=== PATIENT | male | born 1935 | race Caucasian/White ===

== ENCOUNTER 2017-02-19 22:24 | Emergency (ER) | payer MEDICARE ==
[~2017-02-19] VITALS: Ht 175.3 cm; Wt 77.1 kg
[~2017-02-19 22:24] MED LIST: AMLODIPINE10 MG PO; ASPIRIN81 MG PO; ATENOLOL50 M1 PO; ATENOLOL50 MG PO; CIPROFLOXACIN500 MG PO; CYCLOBENZ5 MG PO; IMDUR 30MG. TAB30 MG PO; ISOSORBIDE MONO30 MG PO; LIPITOR20 MG PO; LISINOPRIL 10MG10 MG PO; LISINOPRIL40 MG PO; LOSARTAN POTASS50 MG PO; MIRALAX(PO17 GM/1 PA PO; MOTRIN 400MG.400 MG PO; PLAVIX 75MG TAB75 MG PO; TAMSULOSIN HYD0.4 MG PO; TORSEMIDE10 MG PO; VITAMIN B1250 MCG PO; ZYRTEC ALLERGY10 MG PO
[2017-02-19 23:05] LABS: HEMOGLOBIN 12.8 g/dL (14.1-18.0); LYMPH # 1.4 K/mm3 (0.7-4.5); LYMPH % 26.6 % (10-50)
--- NOTE | 2017-02-20 00:41 | Emergency Room Report ---
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 N Clinical Suspician of Infection? N Mental Status: 1 - Regular (Normal Baseline) Sepsis Risk:Low Sepsis Risk Have you (or family members/close friends) recently traveled outside the [place]? N If Yes, where/when: Have you had exposure to infectious disease within the past month? N TB? Other? Specify: Source patient, RN notes reviewed, family, old records Exam Limitations no limitations Comment pt with episode of chest pain and tonight with no sob or diaphoresis - has hx of cad - no pain at this time Cardiac Chest Pain Chest pain indicative of cardiac Yes Timing/Duration 1-3 hours, gone now Severity/Quality moderate, pressure Location central Chest Pain Radiation arm(s) Activities at Onset light activity Nitro Today/Relief no nitro taken today Aspirin Treatment Today 325 mg x 1, provided at home Beta rebecca treatment today no beta rebecca taken Cardiac risk factors + cardiovascular disease, + family history Prior Workup/Intervention cardiac cath Timing/Duration this evening Severity moderate ALLERGIES Coded Allergies: No Known Drug Allergies (NKDA) (09/11/12) Home Medications Reported Medications LISINOPRIL (Lisinopril) 10 MG PO DAILY Atenolol 50 MG PO BID CLOPIDOGREL BISULFATE (PLAVIX) 75 MG PO DAILY Aspirin 81 MG PO DAILY Atorvastatin Calcium (Lipitor 20MG) 40 MG PO DAILY Amlodipine Besylate (Amlodipine) 10 MG PO DAILY Isosorbide Mononitrate (Isosorbide Mononitrate ER) 30 MG PO DAILY TAMSULOSIN HCL (Tamsulosin 0.4MG) 0.4 MG PO QHS ISOSORBIDE MONONITRATE (IMDUR 30MG) 30 MG PO BID Cyclobenzaprine Hcl (Cyclobenzaprine) 5 MG PO BID Cetirizine Hcl (Zyrtec) 10 MG PO CYANOCOBALAMIN (VITAMIN B-12) (Vitamin B-12) 50 MCG PO POLYETHYLENE GLYCOL (Miralax) 17 GM PO DAILY Ibuprofen (MOTRIN 400MG) 400 MG PO Q8HP PRN . History Medical History General Angina: No [place]: Yes Hypertension? Yes Hyperlipidemia? Yes CHF? No COPD? No Asthma? No Hernia? No CVA? Yes Seizures? No UTI? No Stones? Yes GB Disease: No Hepatitis? No Cataracts? No Glaucoma? No MRSA? No TB? No Cancer? No Immunization Hx DT/Tetanus > 10 Years Ago Pneumonia Refuses Surgical Hx Previous Surgery?Y LEFT LEG JAW SURGERY Family History Family Hx Diabetes Yes Hypertension Yes Hyperlipidemia Yes Social History Smoking Hx Smoker: Never Smoker Tobacco: No Type Cigarettes Alcohol Alcohol: No Drugs none Review of Systems All Other Systems Reviewed and Negative Constitutional denies fever Eyes denies drainage ENT denies: ear discharge, epistaxis, throat pain. Respiratory denies cough, denies shortness of breath, denies wheezing Cardiovascular see HPI, chest pain, denies palpitations, denies syncope Gastrointestinal denies abdominal pain, denies diarrhea, denies vomiting Genitourinary denies: dysuria, frequency, hesitancy, hematuria. Musculoskeletal denies back pain, denies joint pain, denies joint swelling, denies neck pain Skin denies rash Psychiatric/Neurological denies headache, denies seizure Physical Exam Vital Signs Vital Signs Date Time Temp Pulse Resp B/P Pulse O2 O2 Flow FiO2 Ox Delivery Rate 02/20 0025 58 20 172/75 96 02/19 2345 63 22 171/79 96 02/19 2304 62 16 186/46 96 02/19 2224 97.9 80 16 197/98 97 - WBC >12,000 or <4,000 or 10% bands? 2 or more SIRS Criteria Met? B/P:172/75 MAP:131 Creatinine >2.0? UA output<0.5ml/kg/hr for 2 hrs? Platelet count >100,000? Lactate >2.0mmol/1? INR >1.2 or PTT > than 60 sec? Evidence of Organ Dysfunction? Provider documented clinical suspician of infection? N Sepsis Criteria Count: 0 Sepsis Risk: Low Sepsis Risk General Appearance no apparent distress Eye Exam - bilateral eye PERRL, bilateral eye EOMI Ear, Nose, Throat normal ENT inspection Neck supple Respiratory Status No: respiratory distress. Lung Sounds bilateral: lungs clear. 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 No Results/Orders Laboratory Tests 02/20/17 0050: Troponin I 0.06 02/20/17 0050: Lipase 207 02/19/170: Sodium 144, Potassium 3.9, Chloride 109 H, Carbon Dioxide 26, BUN 13, Creatinine 1.1, Estimated Creat Clear 55, Estimated GFR (MDRD) 64, Glucose 114 H, Calcium 8.7, Total Bilirubin 0.2, AST 20, ALT 21, Alkaline Phosphatase 107, Creatine Kinase 122, CK-MB (CK-2) Rel Index 1.6, CK and CKMB Interp 1.9, Troponin I 0.05, Total Protein 6.5, Albumin 3.7, Globulin 2.8, Albumin/Globulin Ratio 1.3, WBC 5.4, RBC 4.38 L, Hgb 12.8 L, Hct 40.0 L, MCV 91.3, RDW 13.2, Plt Count 182, MPV 7.9, Gran % 53.3, Gran # 2.9, Lymphocytes % 26.6, Monocytes % 8.3, Eosinophils % 10.6, Basophils % 1.2, Lymphocytes # 1.4, Monocytes # 0.5, Eosinophils # 0.6 H, Basophils # 0.1, PUBS MCHC 32.0, MCH 29.2 Current Medication Orders Sig/Jeremias Start time Last Medication Dose Route Stop Time Status Admin Sodium Chloride 10 ML PRN PRN 02/19 2245 AC IV 02/20 2233 Orders Procedure Date/time Status ELECTROCARDIOGRAM REQUEST 02/20 41 Active TROPONIN I 02/20 41 Complete LIPASE 02/20 41 Complete ELECTROCARDIOGRAM REQUEST 02/19 2233 Active CHEST-PORTABLE 02/19 2233 Active IV SALINE LOCK 02/19 2233 Active CBC WITH AUTO DIFF 02/19 2233 Complete CARDIAC ENZYMES 02/19 2233 Complete CHEM 12 PROFILE 09/09 2233 Complete 12 LEAD EKG-RIP (INITIAL) 02/19 UNK Active CM/EKG CM/EKG 1 Monitor Rhythm Normal Sinus Rhythm EKG non-spec. ST/Twave chgs CM/EKG 2 Monitor Rhythm Normal Sinus Rhythm EKG non-spec. ST/Twave chgs XRAY/CT/US XRAY/CT/US XRAY chest XR interpretation by reviewed by me Xray Results normal/NAD Departure Departure Time of Disposition 0157 Disposition DC Home or Self Care(routine) Clinical Impression Primary Impression: Chest pain Qualifiers: Chest pain type: precordial pain Qualified Code: R07.2 - Precordial pain Condition STABLE Referrals TAMY WOODSON (Family) Patient Instructions DI for Chest Pain Additional Instructions recheck if any problems and call silvestre ku tuesday Discharge Counseling Counseled pt/family regarding diagnosis, test results, follow up needs ED Critical Care Critical Care No at [id number]
[2017-02-20 02:04] VITALS: BP 159/69
--- NOTE | 2017-02-20 08:01 | RADIOLOGY REPORT PS360 ---
CHEST-PORTABLE HISTORY: CHEST PAIN ORDERING PHYSICIAN: Marielena Rueda MD PATIENT AGE: 82 years COMPARISON: 02/03/2014 FINDINGS: The cardiomediastinal silhouette and pulmonary vascularity are within normal limits. Chronic changes are present in the lung bases. No lobar consolidation or collapse.. No acute bony abnormalities. IMPRESSION: No change with no acute finding
== END 2017-02-20 02:04 | disposition home or self-care (01) ==
LOC: ER 22:24
PROVIDERS: Emergency Medicine
DX: R07.2 Precordial pain (principal); I25.10 Atherosclerotic heart disease of native coronary artery without angina pectoris; Z82.49 Family history of ischemic heart disease and other diseases of the circulatory system; Z98.61 Coronary angioplasty status; Z79.02 Long term (current) use of antithrombotics/antiplatelets; Z79.82 Long term (current) use of aspirin; Z79.899 Other long term (current) drug therapy

== ENCOUNTER → 2017-03-10 | Outpatient (CLI) | payer MEDICARE ==
--- NOTE | 2017-03-10 13:30 | CARDIOVASCULAR REPORT ---
"Cerebrovascular Exam Indications: 433.10 Occlusion/stenosis of carotid artery without cerebral infarction. IMPRESSIONS 1. The bilateral vertebral arteries are patent with normal antegrade flow. 2. Study suggests 50-69%(LOWER END OF SCALE)stenosis involving the right internal carotid artery. 3. Study suggests 50-69% stenosis involving the left internal carotid artery. Disease progression from the study of 01-Oct-2015. Study suggests >50% stenosis of left external carotid artery, History: Coronary artery disease. Risk factors: Hypertension. Carotid duplex study. Complete study and Doppler flow study including spectral analysis, color and rosenberg scale imaging. Location: Vascular laboratory. Patient status: Outpatient. Tables: Arterial flow: + +--------+--------+ |Location |V sys |V ed | + +--------+--------+ |Right CCA - proximal|95.9cm/s|28.3cm/s| + +--------+--------+ |Right CCA - distal |88.8cm/s|29.9cm/s| + +--------+--------+ |Right ECA |108cm/s |--------| + +--------+--------+ |Right ICA - proximal|115cm/s |36.1cm/s| + +--------+--------+ |Right ICA - mid |150cm/s |44cm/s | + +--------+--------+ |Right ICA - distal |137cm/s |40.1cm/s| + +--------+--------+ |Right vertebral |81.7cm/s|--------| + +--------+--------+ |Left CCA - proximal |98.2cm/s|22.8cm/s| + +--------+--------+ |Left CCA - distal |95.9cm/s|29.1cm/s| + +--------+--------+ |Left ECA |219cm/s |154cm/s | + +--------+--------+ |Left ICA - proximal |164cm/s |51.1cm/s| + +--------+--------+ |Left ICA - mid |130cm/s |33.4cm/s| + +--------+--------+ |Left ICA - distal |106cm/s |28.5cm/s| + +--------+--------+ |Left vertebral |62.9cm/s|33.4cm/s| + +--------+--------+ Velocity ratios: + + + + + + | |Right, V sys|Right, V ed|Left, V sys|Left, V ed| + + + + + + |Max ICA/dist CCA|1.69 |1.47 |1.71 |1.76 | + + + + + + (Report amended ) Electronically signed by: Juan Alaniz [id number]"
== END ==
LOC: RT 12:46
DX: I65.23 Occlusion and stenosis of bilateral carotid arteries (principal); I25.10 Atherosclerotic heart disease of native coronary artery without angina pectoris; I10 Essential (primary) hypertension; R07.9 Chest pain, unspecified